=== PATIENT | female | born 1960 | race Caucasian/White ===

== ENCOUNTER 2021-04-04 01:22 | Emergency (ER) | payer MEDICARE, MEDICAID ==
[2021-04-04 01:52] LABS: HEMOGLOBIN 14.6 gm/dl (12.3-15.3); RED BLOOD COUNT 4.91 M/UL (4.00-5.10); WHITE BLOOD COUNT 12.5 K/UL (4.5-11.0)
--- NOTE | 2021-04-04 11:04 | NUR ---
PT TAKEN TO OBJECTIVE C DEVELOPER BY OBJECTIVE C DEVELOPER NURSES
== END 2021-04-04 10:00 | disposition admitted as inpatient to this hospital (09) ==
LOC: ER1 01:22 → CDU 05:05 → ER1 05:05
PROVIDERS: Family Medicine
DX: I21.3 ST elevation (STEMI) myocardial infarction of unspecified site (principal); E87.6 Hypokalemia; Z20.822 Contact with and (suspected) exposure to COVID-19; F17.210 Nicotine dependence, cigarettes, uncomplicated; Z85.3 Personal history of malignant neoplasm of breast; Z88.1 Allergy status to other antibiotic agents; Z88.2 Allergy status to sulfonamides; Z88.5 Allergy status to narcotic agent
CPT/HCPCS: 71045; 80053; 80061; 82550; 82553; 83735; 83874; 83880; 84484; 85025; 85347; 85379; 85610; 85730; 93005; 96374; 96375; 99152; 99153; 99285; C1769; C1887; C1894; G0378; J0360; J0780; J1644; J1885; J1940; J2250; J2270; J2405; J3480; J7040; Q9967; U0002

== ENCOUNTER → 2021-09-21 | Outpatient (CLI) | payer MEDICARE | LOC: LAB 12:15 | PROVIDERS: Internal Medicine | DX: I50.22 Chronic systolic (congestive) heart failure (principal) | CPT/HCPCS: 36415; 80048 ==

== ENCOUNTER 2021-10-10 22:33 | Emergency (ER) | payer MEDICARE | END 2021-10-10 23:58 | disposition home or self-care (01) | LOC: ER1 22:33 | DX: T85.698A Other mechanical complication of other specified internal prosthetic devices, implants and grafts, initial encounter (principal); I11.0 Hypertensive heart disease with heart failure; I50.9 Heart failure, unspecified; I25.10 Atherosclerotic heart disease of native coronary artery without angina pectoris; E70.9 Disorder of aromatic amino-acid metabolism, unspecified; Z79.01 Long term (current) use of anticoagulants | CPT/HCPCS: 99282 ==

== ENCOUNTER → 2022-01-10 | Outpatient (CLI) | payer MEDICARE ==
[2022-01-10 17:26] LABS: HEMOGLOBIN 11.5 gm/dl (12.3-15.3); RED BLOOD COUNT 4.18 M/UL (4.00-5.10); WHITE BLOOD COUNT 8.6 K/UL (4.5-11.0)
[2022-01-12 08:12] LABS: COMPLEMENT C3, SERUM 147 mg/dL (82-167); COMPLEMENT C4, SERUM 22 mg/dL (12-38); THYROID PEROXIDASE (TPO) AB 8 IU/mL (0-34)
[2022-01-12 12:12] LABS: HBSAG SCREEN Negative (Negative); HCV AB 0.1 (0.0-0.9); HEP A AB, IGM Negative (Negative); HEP B CORE AB, IGM Negative (Negative)
[2022-01-12 17:12] LABS: LYME TOTAL ANTIBODY EIA Negative (Negative)
[2022-01-12 21:07] LABS: QUANTIFERON MITOGEN VALUE >10.00 IU/mL (.); QUANTIFERON-TB GOLD PLUS Negative (Negative)
[2022-01-14 07:10] LABS: CENTROMERE PATTERN >1:1280 (.)
[2022-01-14 15:10] LABS: ANTI-CENTROMERE B ANTIBODIES >8.0 AI (0.0-0.9); ANTI-DNA (DS) AB QN 2 IU/mL (0-9); ANTI-JO-1 <0.2 AI (0.0-0.9); ANTICHROMATIN ANTIBODIES 0.2 AI (0.0-0.9); ANTIRIBOSOMAL P ANTIBODIES <0.2 AI (0.0-0.9); ANTISCLERODERMA-70 ANTIBODIES <0.2 AI (0.0-0.9); RNP ANTIBODIES <0.2 AI (0.0-0.9); SJOGREN'S ANTI-SS-A 0.2 AI (0.0-0.9); SJOGREN'S ANTI-SS-B <0.2 AI (0.0-0.9); SMITH ANTIBODIES <0.2 AI (0.0-0.9); SMITH/RNP ANTIBODIES <0.2 AI (0.0-0.9)
[2022-01-14 15:10] LABS: A/G RATIO 0.9 (0.7-1.7); ALBUMIN 3.4 g/dL (2.9-4.4); ALDOLASE 7.1 U/L (3.3-10.3); ALPHA-1-GLOBULIN 0.3 g/dL (0.0-0.4); ALPHA-2-GLOBULIN 0.9 g/dL (0.4-1.0); ANGIOTENSIN-CONVERTING ENZYME 57 U/L (14-82); BETA GLOBULIN 1.3 g/dL (0.7-1.3); GAMMA GLOBULIN 1.4 g/dL (0.4-1.8); GLOBULIN, TOTAL 3.8 g/dL (2.2-3.9); M-SPIKE Not Observed g/dL (Not Observed); PROTEIN, TOTAL, SERUM 7.2 g/dL (6.0-8.5)
[2022-01-14 17:10] LABS: ANTIMYELOPEROXIDASE (MPO) ABS <9.0 U/mL (0.0-9.0); ANTIPROTEINASE 3 (PR-3) ABS <3.5 U/mL (0.0-3.5); ATYPICAL PANCA <1:20 titer (Neg:<1:20); CYTOPLASMIC (C-ANCA) <1:20 titer (Neg:<1:20)
[2022-01-14 22:11] LABS: THYROGLOBULIN ANTIBODY <1.0 IU/mL (0.0-0.9)
== END ==
LOC: LAB 14:57
PROVIDERS: Internal Medicine
DX: I73.00 Raynaud's syndrome without gangrene (principal); I99.8 Other disorder of circulatory system; I50.22 Chronic systolic (congestive) heart failure; M34.9 Systemic sclerosis, unspecified; R53.83 Other fatigue; Z68.26 Body mass index [BMI] 26.0-26.9, adult
CPT/HCPCS: 36415; 80053; 80074; 81001; 82085; 82164; 82550; 83520; 84155; 84165; 85025; 85652; 86038; 86140; 86160; 86200; 86235; 86256; 86376; 86430; 86431; 86617; 86618; 86800

== ENCOUNTER → 2022-01-23 | Outpatient (CLI) | payer MEDICARE ==
[2022-01-25 19:12] LABS: AMPHETAMINES, URINE Negative ng/mL (Cutoff=1000); BARBITURATE Negative ng/mL (Cutoff=200); BENZODIAZEPINES Negative ng/mL (Cutoff=200); CANNABINOIDS Negative ng/mL (Cutoff=20); COCAINE (METABOLITE) Negative ng/mL (Cutoff=300); CREATININE 50.9 mg/dL (20.0-300.0); MEPERIDINE Negative ng/mL (Cutoff=200); METHADONE Negative ng/mL (Cutoff=300); OPIATES Negative ng/mL (Cutoff=300); PHENCYCLIDINE Negative ng/mL (Cutoff=25); PROPOXYPHENE Negative ng/mL (Cutoff=300)
== END ==
LOC: LAB 14:56
PROVIDERS: Internal Medicine
DX: I73.00 Raynaud's syndrome without gangrene (principal); I99.8 Other disorder of circulatory system; M34.9 Systemic sclerosis, unspecified; R53.83 Other fatigue; Z68.28 Body mass index [BMI] 28.0-28.9, adult
CPT/HCPCS: 80307